=== PATIENT | male | born 1985 | race Caucasian/White ===

== ENCOUNTER 2016-05-23 17:28 | Emergency (ER) | payer BC ==
[~2016-05-23 17:28] MED LIST: Sodium Chloride 0.9% 1,000 ML BAG ONE
[2016-05-23] MEDS ORDERED: Ondansetron HCl/PF 4 MG/2 ML Vial ONE (18:38)
[2016-05-23 19:01] LABS: Bilirubin Negative (Negative); Blood, Urine Large (Negative); Clarity Slightly Cloudy (Clear); Glucose, Urine (Dipstick) Negative (Negative); Leukocyte Negative (Negative); Nitrite Negative (Negative); Protein, Urine (Dipstick) Trace mg/dL (Neg-Trace); Specific Gravity, Urine 1.025 (1.005-1.030); Urobilinogen 0.2 mg/dL (0.2-1.0)
[2016-05-23 19:17] LABS: Bacteria/HPF 2+ HPF (None Seen); RBC/HPF GREATER THAN 50-TNTC HPF (0-3); Renal Epithelial 0-3 HPF (0-3); Transitional Epithelial 0-3 HPF (0-3)
[2016-05-23 19:17] LABS: #Basophils 0.1 thou/uL (0.0-0.2); #Eosinphils 0.1 thou/uL (0.0-0.7); #Lymphocytes 2.2 thou/uL (1.20-3.40); #Monocytes 0.7 thou/uL (0.11-0.59); #Neutrophils 8.9 thou/uL (1.40-6.50); %Basophils 1.1 % (0.0-1.0); %Eosinophils 0.9 % (0.0-10.0); %Lymphocytes 17.9 % (21.0-51.0); %Monocytes 5.9 % (0.0-10.0); %Neutrophils 74.2 % (42.0-75.0); Hemoglobin 14.8 g/dL (14.0-18.0); Mean Corpuscular HGB CONC 35.3 g/dL (32.0-36.0); Mean Corpuscular Volume 90.6 fl (80.0-94.0); Platelet Count 252 thou/uL (130-400); RBC Distribution Width 11.6 % (11.5-14.5); Red Blood Cell (RBC) Count 4.61 mill/uL (4.70-6.10)
[2016-05-23 19:20] LABS: ALT (SGPT) 30 U/L (0-55); AST (SGOT) 20 U/L (5-34); Albumin 4.5 g/dL (3.5-5.0); Alkaline Phosphatase 52 U/L (40-150); Anion Gap 16 mmol/L (10-20); BUN (Urea Nitrogen) 15 mg/dL (8.9-20.6); Bilirubin, Total 0.3 mg/dL (0.2-1.2); Calc. Creatinine Clearance 0 mL/min (70-130); Calcium 9.3 mg/dL (7.8-10.44); Carbon Dioxide 25 mmol/L (22-29); Chloride 103 mmol/L (98-107); Estimated GFR-MDRD Greater than 90; Globulin 2.7 g/dL (2.4-3.5); Glucose 93 mg/dL (70-105); Lipase 18 U/L (8-78); Potassium 3.8 mmol/L (3.5-5.1); Protein, Total 7.2 g/dL (6.0-8.3); Sodium 140 mmol/L (136-145)
[2016-05-23] MEDS ORDERED: Ketorolac Tromethamine 30 MG/ML VIAL ONE (19:26)
[2016-05-23] MEDS ORDERED: Cephalexin 500 MG CAP ONE (19:34)
--- NOTE | 2016-05-23 21:13 | CT ---
CT ABDOMEN AND PELVIS: Date: 05-23-16 Provided Clinical History: Right flank pain. FINDINGS: Comparison 06-08-09. The visualized lung bases are free of significant opacity. There is a 3 mm calculus present within the proximal right ureter with mild right hydronephrosis. A dditional nonobstructing tiny right renal calculi are seen. Nonobstructing left renal calculus is s een. No additional ureteral or bladder calculi. Solid abdominal organs are suboptimally evaluated without IV contrast and demonstrate an unremarkabl e unenhanced CT appearance otherwise. There is no bowel dilatation, inflammatory fat stranding, free fluid or free air apparent. The appe ndix appears normal. The osseous structures demonstrate no concerning osteoblastic or osteolytic lesions. IMPRESSION: 1. 3 mm mildly obstructing right proximal ureteral calculus. 2. Bilateral nephrolithiasis. POS: [facility]
== END 2016-05-23 18:48 | disposition home or self-care (01) ==
LOC: MADERS 17:28
DX: N20.0 Calculus of kidney (principal)
CPT/HCPCS: 36415; 74176; 80053; 81003; 81015; 83690; 85025; 87086; 96361; 96374; 96375; J1885; J2405; J7050

== ENCOUNTER 2023-03-12 19:59 | Emergency (ER) | payer BC, OTHER ==
[2023-03-12] MEDS ORDERED: Lidocaine 1% (PF) 30 ML VIAL ONE (20:56)
[2023-03-12] MEDS ORDERED: Bacitracin 1 PK ONE (21:33)
[2023-03-12] MEDS ORDERED: Boostrix 0.5 ML (Tdap) VIAL (>/=7 yrs of age) ONE (21:40)
== END 2023-03-12 21:57 | disposition home or self-care (01) ==
LOC: MADERS 19:59
DX: S61.012A Laceration without foreign body of left thumb without damage to nail, initial encounter (principal); Z23 Encounter for immunization; W26.0XXA Contact with knife, initial encounter
CPT/HCPCS: 12001; 90471; 90715; J2001